=== PATIENT | male | born 1980 | race Caucasian/White ===

== ENCOUNTER → 2025-06-01 14:34 | Outpatient (CLI) | payer OTHER, SELFPAY ==
--- NOTE | 2025-06-01 | DI.RAD.S_ITS ---
PROCEDURE: XR KNEE LT 3V INDICATIONS: KNEE PAIN TECHNIQUE: 3 views of the knee were acquired. COMPARISON: [facility], CR, XR KNEE RT 3V, 06/01/2025, 14:47. 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 small effusion.. Soft tissues: Normal IMPRESSION: Mild degeneration. Small effusion Dictated by: Kenny Randall M.D. on 06/02/2025 at 13:38 Approved by: Kenny Randall M.D. on 06/02/2025 at 13:39
--- NOTE | 2025-06-01 | DI.RAD.S_ITS ---
PROCEDURE: XR KNEE RT 3V INDICATIONS: KNEE PAIN TECHNIQUE: 3 views of the knee were acquired. COMPARISON: None. FINDINGS: Bones: There are no osseous abnormalities. Joints: The tibialfemoral and patellofemoral joints are normal in width and alignment without arthritic change. . Small effusion. Soft tissues: Normal IMPRESSION: Small effusion Dictated by: Kenny Randall M.D. on 06/02/2025 at 13:37 Approved by: Kenny Randall M.D. on 06/02/2025 at 13:38
== END ==
PROVIDERS: Referring Provider Chiropractor; Visit Provider Chiropractor
DX: J18.9 Pneumonia, unspecified organism (principal); M13.80 Other specified arthritis, unspecified site; M25.462 Effusion, left knee; M25.461 Effusion, right knee
CPT/HCPCS: 73562; 94060